=== PATIENT | female | born 1995 | race Caucasian/White ===

== ENCOUNTER 2016-12-29 20:43 | Emergency (ER) | payer BC, OTHER ==
[2016-12-29 20:57] VITALS: BP 115/72
--- NOTE | 2016-12-29 21:16 | UC ---
Skin Complaint HPI - HPI Summary HPI Summary: 21 YEAR OLD FEMALE PRESENTS WITH COMPLAINS OF BRUISING WITHOUT TRAUMA AND FATIGUE. I WILL SEND HER TO THE ER TO RULE OUT ITP. - History of Current Complaint Chief Complaint: UCSkin Time Seen by Provider: 12/29/16 21:05 Stated Complaint: LEGS ACHEY,BRUISING Hx Last Menstrual Period: 12/22/16 - Allergy/Home Medications Allergies/Adverse Reactions: Allergies Allergy/AdvReac Type Severity Reaction Status Date / Time No Known Allergies Allergy Verified 12/29/16 20:52 Home Medications: Home Medications Norgestrel & Ethinyl Estradiol [Cryselle-28] 1 tab PO DAILY 12/29/16 [History Confirmed 12/29/16] Review of Systems Constitutional: Fatigue Skin: Rash, Other - PETECHIAL RASH Eyes: Negative ENT: Negative Respiratory: Negative Cardiovascular: Negative Gastrointestinal: Negative Genitourinary: Negative Motor: Negative Neurovascular: Negative Musculoskeletal: Negative Neurological: Negative Psychological: Negative All Other Systems Reviewed And Are Negative: Yes PMH/Surg Hx/FS Hx/Imm Hx - Surgical History Surgical History: None - Family History Known Family History: Positive: None - Social History Alcohol Use: None Substance Use Type: None Smoking Status (MU): Never Smoked Tobacco Physical Exam Triage Information Reviewed: Yes Vital Signs: Initial Vital Signs Temp 36.8 C 12/29/16 20:53 Pulse 79 12/29/16 20:53 Resp 16 12/29/16 20:53 BP 115/72 12/29/16 20:53 Pulse Ox 100 12/29/16 20:53 Eye Exam: Normal ENT Exam: Normal Dental Exam: Normal Neck exam: Normal Neck: Positive: 1 Respiratory Exam: Normal Cardiovascular Exam: Normal Abdominal Exam: Normal Musculoskeletal Exam: Normal Neurological Exam: Normal Psychological Exam: Normal Skin Exam: Normal Skin: Positive: rashes - PETECHIAL RASH Course/Dx - Diagnoses Provider Diagnoses: RASH. FATIGUE Discharge - Discharge Plan Condition: Guarded Disposition: AGAINST MEDICAL ADVICE Patient Education Materials: Fatigue (ED), Acute Rash (ED) Referrals: No Primary Care Phys,NOPCP [Primary Care Provider] -
== END 2016-12-29 21:44 | disposition left against medical advice (07) ==
LOC: UCCORT 20:43
DX: R23.3 Spontaneous ecchymoses (principal); R53.83 Other fatigue
CPT/HCPCS: 99212; G0463

== ENCOUNTER 2019-04-18 21:42 | Emergency (ER) | payer BC, OTHER ==
[2019-04-18 22:02] VITALS: BP 110/64
--- NOTE | 2019-04-18 22:24 | UC ---
UC General HPI - HPI Summary HPI Summary: Per community life director: "patient concerned about boyfriend having genital warts. recently had unprotected sexual activity. boyfriend with wart on lower abdomen." -she has no sx. she feels that her boyfriend must think it is her fauklt that she gave it to him. he is not here. he has not been checked but plns to do so. -she has no discharge, no dysuria. she does want GC/chlam urine test done. -has has had 2 paps w/ neg HPBV -she has had HPV vaccine, he has not. -she states that she is very anxious and just needs to be reassured. + h/o chlamydia treated in past - History of Current Complaint Chief Complaint: UCGU Stated Complaint: PERSONAL Time Seen by Provider: 04/18/19 21:54 Hx Last Menstrual Period: 03/29/19 Pain Intensity: 0 - Allergy/Home Medications Allergies/Adverse Reactions: Allergies Allergy/AdvReac Type Severity Reaction Status Date / Time No Known Allergies Allergy Verified 04/18/19 21:51 PMH/Surg Hx/FS Hx/Imm Hx Previously Healthy: Yes - Surgical History Surgical History: None - Family History Known Family History: Positive: Non-Contributory - Social History Alcohol Use: Occasionally Substance Use Type: None Smoking Status (MU): Never Smoked Tobacco Review of Systems All Other Systems Reviewed And Are Negative: Yes Constitutional: Positive: Negative Respiratory: Positive: Negative Cardiovascular: Positive: Negative Gastrointestinal: Positive: Negative Genitourinary: Positive: Negative. Negative: Dysuria, Hematuria, Urgency, Vaginal/Penile Burning, Vaginal/Penile Itching, Vaginal/Penile Discharge, Vaginal/Penile Pain, Vaginal/Penile Tenderness Motor: Positive: Negative Neurovascular: Positive: Negative Musculoskeletal: Positive: Negative Neurological: Positive: Negative Psychological: Positive: Negative Is Patient Immunocompromised?: No Physical Exam Vital Signs: Initial Vital Signs Temp 98.7 F 04/18/19 21:52 Pulse 97 04/18/19 21:52 Resp 18 04/18/19 21:52 BP 110/64 04/18/19 21:52 Pulse Ox 100 04/18/19 21:52 Course/Dx - Course Course Of Treatment: requests GC/chlam urine only -she is due for f/u COUNTERINTELLIGENCE AGENT exam at [facility] adn she will call cru[facility] dye. -discussed safe sex practices. -enc her BF to be examined to determine his lesion. -she is reassured and feels better - Diagnoses Provider Diagnosis: Screen for STD (sexually transmitted disease) Discharge ED - Sign-Out/Discharge Documenting (check all that apply): Patient Departure All imaging exams completed and their final reports reviewed: No Studies - Discharge Plan Condition: Stable Disposition: HOME Patient Education Materials: Safe Sex (ED) Referrals: No Primary Care Phys,NOPCP [Primary Care Provider] - Additional Instructions: Follow up at the [facility] for routine COUNTERINTELLIGENCE AGENT care -you will be called if the gonorrhea/chalmydia testing is positive. - Billing Disposition and Condition Condition: STABLE Disposition: Home
[2019-04-22 12:37] LABS: Chlamydia trachomatis NAA Negative (Negative); Neisseria gonorrhoeae (GC) NAA Negative (Negative)
--- NOTE | 2019-04-23 07:28 | UC ---
- Progress Note Progress Note: neg GC. 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 - Billing Disposition and Condition Condition: STABLE Disposition: Home
== END 2019-04-18 22:36 | disposition home or self-care (01) ==
LOC: UCCORT 21:42
DX: Z11.3 Encounter for screening for infections with a predominantly sexual mode of transmission (principal)
CPT/HCPCS: 87491; 87591; 99211; G0463